=== PATIENT | female | born 1955 | race Caucasian/White ===

== ENCOUNTER → 2016-05-18 | Outpatient (CLI) | payer BC ==
[~2016-05-18] MED LIST: MTRUNK PO
--- NOTE | 2016-05-18 15:09 | DIAGNOSTIC IMAGING REPORT ---
EXAMINATION: PELVIC ULTRASOUND CLINICAL HISTORY: PELVIC AND PERINEAL PAIN PAIN COMPARISON STUDY: None FINDINGS: The uterus measured surgically absent. The endometrial stripe measured absent. The right ovary measured not seen due to overlying bowel content. The left ovary measured not seen due to overlying bowel content. There was no evidence of pathologic free pelvic fluid. IMPRESSION: Negative study status post hysterectomy. Nonvisualization of the ovaries most likely due to overlying bowel content. Electronically signed by: Carroll Veliz M.D. 05/18/2016 3:07 PM Dictated Date/Time: 05/18/2016 3:06 PM
== END | disposition home or self-care (01) ==
LOC: C.ULTR 14:23
PROVIDERS: ATTEND Family Medicine
DX: R10.2 Pelvic and perineal pain (principal)